=== PATIENT | female | born 1980 | race Caucasian/White ===

== ENCOUNTER 2018-12-08 13:23 | Outpatient (CLI) | payer MEDICAID ==
[2018-12-08] MEDS ORDERED: Bupivacaine 0.5% 30 ML SDV ONE (13:30)
[2018-12-08] MEDS ORDERED: Triamcinolone Acetonide 40 MG/ML 1 ML MDV ONE (13:30)
[2018-12-08 13:48] VITALS: BP 137/70; PULSE 80
--- NOTE | 2018-12-08 14:12 | ANES ---
DATE OF SERVICE: 12/08/2018 INDICATION: Ms. Langston is a 38-year-old female patient, referred to the [facility] to us by PRUDENCIO Rosenberg. She is here today for trigger points. Please see the orders for the patient's preprocedure diagnosis as well as ICD-10 code. Risks and benefits of procedure were explained to the patient. She wished to proceed with trigger point injections. TECHNIQUE: I did find 18 noticeable lumbosacral trigger points. I injected each of these 1 to 2 mL of 0.5% Sensorcaine with a Kenalog mixture. I did inject more than 3 muscle groups. She tolerated the procedure very nicely. Vital signs remained stable throughout the procedure, and nurse was with me for the entire procedure. There were no anesthesia complications noted, and she is going to return in 2 weeks for trigger point injections. She was discharged from the [facility] per protocol. Jose Maria Carson CRNA /[id number]
== END 2018-12-08 14:01 | disposition home or self-care (01) ==
LOC: JP.PAIN 13:23
PROVIDERS: ATTEND Physician Assistant
DX: M79.10 Myalgia, unspecified site (principal)
CPT/HCPCS: 20553; J3301; J3490

== ENCOUNTER 2019-03-25 11:21 | Emergency (ER) | payer MEDICAID ==
[2019-03-25 11:43] VITALS: BP 130/78; PULSE 93
--- NOTE | 2019-03-25 12:13 | EDM.PDOC ---
ED HPI GENERAL MEDICAL PROBLEM - General Chief Complaint: Respiratory Problem Stated Complaint: SWELLING FROM TOES TO ABD, PAIN, SOB Time Seen by Provider: 03/25/19 11:41 Source of Information: Reports: Patient History Limitations: Reports: No Limitations - History of Present Illness INITIAL COMMENTS - FREE TEXT/NARRATIVE: States she has had progressive swelling from her toes to her abdomen. Has been gradual; is painful. Red. She has seen her PCP; rx dyazide however she hasn't taken because she uses [place] and is concerned for interactions. Onset: Gradual Location: Reports: Abdomen, Lower Extremity, Left, Lower Extremity, Right Severity: Moderate Improves with: Reports: None Worsens with: Reports: None Associated Symptoms: Reports: Other (shortness of breath) Lower Leg Pain Score (Numeric/FACES): 4 - Related Data Allergies Allergy/AdvReac Type Severity Reaction Status Date / Time ketorolac tromethamine Allergy Hives Verified 12/08/18 13:36 [From Toradol] tramadol Allergy Hives Verified 12/08/18 13:36 Home Meds: Home Meds [place] Carbonate [Eskalith] 1,200 mg PO BEDTIME 07/25/14 [History] ALPRAZolam [Xanax] 1 mg PO BID PRN 02/07/15 [History] Cholecalciferol (Vitamin D3) [Vitamin D] 5,000 unit PO DAILY 07/19/15 [History] Amphetamine/Dextroamphetamine [Adderall XR] 30 mg PO DAILY 10/31/15 [History] carBAMazepine [Tegretol] 900 mg PO DAILY 02/25/17 [History] OLANZapine [Zyprexa] 15 mg PO BEDTIME 02/24/18 [History] tiZANidine [Zanaflex] 4 mg PO TID 10/20/18 [History] Dextroamphetamine/Amphetamine [Adderall] 30 mg PO DAILY 12/08/18 [History] Past Medical History HEENT History: Reports: Other (See Below) Other HEENT History: blind left eye Gastrointestinal History: Reports: Other (See Below) Other Gastrointestinal History: diverticulitis Neurological History: Reports: Migraines Psychiatric History: Reports: ADHD, Addiction, Anxiety, Bipolar, Depression, Mood Swings, Panic Attack, PTSD, Suicide Attempt - Infectious Disease History Infectious Disease History: Reports: Chicken Pox - Past Surgical History GI Surgical History: Reports: Cholecystectomy, Colonoscopy Social & Family History - Tobacco Use Smoking Status *Q: Current Every Day Smoker Years of Tobacco use: 20 Packs/Tins Daily: 0.5 - Caffeine Use Caffeine Use: Reports: Coffee, Energy Drinks, Soda, Tea - Recreational Drug Use Recreational Drug Use: No ED ROS GENERAL - Review of Systems Review Of Systems: See Below Constitutional: Reports: Weight Gain Respiratory: Reports: Shortness of Breath Cardiovascular: Reports: No Symptoms Endocrine: Reports: No Symptoms GI/Abdominal: Reports: No Symptoms : Reports: No Symptoms Musculoskeletal: Reports: Other (Bilateral LE edema) Skin: Reports: Other (Bilateral lower extremities redness/blotchiness) Neurological: Reports: No Symptoms Psychiatric: Reports: No Symptoms ED EXAM, GENERAL - Physical Exam Exam: See Below Exam Limited By: No Limitations General Appearance: Alert, WD/WN, No Apparent Distress Head: Atraumatic, Normocephalic Neck: Normal Inspection, Supple, Non-Tender, Full Range of Motion Respiratory/Chest: No Respiratory Distress, Lungs Clear, Normal Breath Sounds, No Accessory Muscle Use, Chest Non-Tender Cardiovascular: Normal Peripheral Pulses, Regular Rate, Rhythm Peripheral Pulses: 4+: Posterior Tibial (L), Posterior Tibial (R), Dorsalis Pedis (L), Dorsalis Pedis (R) GI/Abdominal: Normal Bowel Sounds, Soft, Non-Tender Back Exam: Normal Inspection, Decreased Range of Motion Extremities: Pedal Edema, Leg Pain, Increased Warmth, Redness, Other (2-3+ pitting edema that extends upward; to waste) Neurological: Alert, Oriented, CN II-XII Intact Psychiatric: Normal Affect, Other (tearful/anxious) Skin Exam: Warm, Dry, Intact Course - Vital Signs Last Recorded V/S: Last Vital Signs Temp 95.8 F 03/25/19 11:44 Pulse 93 03/25/19 11:44 Resp 18 03/25/19 11:44 BP 130/78 03/25/19 11:44 Pulse Ox 95 03/25/19 11:44 - Orders/Labs/Meds Labs: Laboratory Tests 03/25/19 03/25/19 Range/Units 12:28 12:28 WBC 9.3 (4.5-11.0) K/uL RBC 4.11 (3.30-5.50) M/uL Hgb 12.2 D (12.0-15.0) g/dL Hct 40.0 (36.0-48.0) % MCV 97 (80-98) fL MCH 30 (27-31) pg MCHC 31 L (32-36) % Plt Count 264 (150-400) K/uL Neut % (Auto) 65 (36-66) % Lymph % (Auto) 25 (24-44) % [place] % (Auto) 8 H (2-6) % Eos % (Auto) 2 (2-4) % Baso % (Auto) 0 (0-1) % Sodium 141 (140-148) mmol/L Potassium 4.0 (3.6-5.2) mmol/L Chloride 107 (100-108) mmol/L Carbon Dioxide 28 (21-32) mmol/L Anion Gap 5.6 (5.0-14.0) mmol/L BUN 17 D (7-18) mg/dL Creatinine 0.9 (0.6-1.0) mg/dL Est Cr Clr Drug Dosing 74.77 mL/min Estimated GFR (MDRD) > 60 (>60) Glucose 83 (74-106) mg/dL Calcium 9.0 (8.5-10.1) mg/dL Total Bilirubin 0.3 (0.2-1.0) mg/dL AST 45 H D (15-37) U/L ALT 58 D (12-78) U/L Alkaline Phosphatase 123 H (46-116) U/L NT-Pro-B Natriuret Pep 4855 H (5-125) pg/mL Total Protein 5.8 L (6.4-8.2) g/dL Albumin 2.9 L (3.4-5.0) g/dL Globulin 2.9 (2.3-3.5) g/dL Albumin/Globulin Ratio 1.0 L (1.2-2.2) - Re-Assessments/Exams Free Text/Narrative Re-Assessment/Exam: 03/25/19 13:35 Spoke with PCPRomán; This is the plan. Be sure to keep your appt with Marci France, here, at 3:00 03/29/19 Elevate your legs Lasix, 20 mg daily for one week Román, will be making appt to get the echocardiogram (ultrasound) of your heart; she will let you know when that is; You are off work this week Avoid food in a can. Fresh or frozen. Push water. You will be up going to the bathroom while taking the lasix. Be sure to take in the morning. Weight yourself daily. You will need to have your [place] level done more regularly should you stay on this medication. Call with questions. 03/25/19 13:36 Departure - Departure Time of Disposition: 13:29 Disposition: Home, Self-Care 01 Condition: Fair Clinical Impression: Shortness of breath, Lower extremity edema - Discharge Information *PRESCRIPTION DRUG MONITORING PROGRAM REVIEWED*: Not Applicable *COPY OF PRESCRIPTION DRUG MONITORING REPORT IN PATIENT BROO[place]: Not Applicable Instructions: Shortness of Breath, Adult, [id number], Edema Referrals: Toshia France PA [Primary Care Provider] - Forms: ED Department Discharge Additional Instructions: Be sure to keep your appt with Marci France, here, at 3:00 03/29/19 Elevate your legs Lasix, 20 mg daily for one week Román, will be making appt to get the echocardiogram (ultrasound) of your heart; she will let you know when that is; You are off work this week Avoid food in a can. Fresh or frozen. Push water. You will be up going to the bathroom while taking the lasix. Be sure to take in the morning. You will need to have your [place] level done more regularly should you stay on this medication. Call with questions. ED Communication - Discussed Case With (1) Discussed Case With (1): Outpatient Provider (Attempted contact/left message with Doyle Kaye [facility] Psychiatrist, regarding simultaneous use of diuretic and lithium) - Problem List & Annotations (1) Shortness of breath SNOMED Code(s): 541095325 Code(s): R06.02 - SHORTNESS OF BREATH Status: Acute Priority: Medium Current Visit: Yes - Problem List Review Problem List Initiated/Reviewed/Updated: Yes
--- NOTE | 2019-03-25 13:08 | CRLCR ---
HISTORY: Short of breath. COMPARISON: 01/06/2016. FINDINGS: The lungs are clear. Costophrenic angles sharp. Heart size and pulmonary vascularity within normal limits. The thorax is intact. IMPRESSION: No acute pulmonary process. Dictated by Kellen Martinez MD @ Mar 25 2019 1:05PM Signed by Dr. Kellen Martinez @ Mar 25 2019 1:05PM
== END 2019-03-25 13:53 | disposition home or self-care (01) ==
LOC: JP.ED 11:21
DX: R60.0 Localized edema (principal); R06.02 Shortness of breath; F31.9 Bipolar disorder, unspecified; F41.9 Anxiety disorder, unspecified; F17.210 Nicotine dependence, cigarettes, uncomplicated; Z88.5 Allergy status to narcotic agent; Z88.6 Allergy status to analgesic agent; Z79.899 Other long term (current) drug therapy
CPT/HCPCS: 36415; 71046; 80053; 83880; 85025; 99285-25

== ENCOUNTER 2019-05-14 16:18 | Emergency (ER) | payer MEDICAID ==
[2019-05-14 16:38] VITALS: BP 128/73; PULSE 86
[2019-05-14] MEDS ORDERED: Ketorolac 60 MG/2 ML SDV IM ONE (16:59)
[2019-05-14] MEDS ORDERED: diphenhydrAMINE 50 MG/ML SDV IM ONE (17:01)
--- NOTE | 2019-05-14 17:03 | EDM.PDOC ---
ED HPI GENERAL MEDICAL PROBLEM - General Chief Complaint: General Stated Complaint: SHAKING/PAIN Time Seen by Provider: 05/14/19 17:01 Source of Information: Reports: Patient, Family, RN Notes Reviewed History Limitations: Reports: No Limitations - History of Present Illness INITIAL COMMENTS - FREE TEXT/NARRATIVE: 38-year-old female presents emergency department today complaint of bilateral ankle knee elbow wrist pain it's been going on for the last 3 days has progressively gotten worse she has use ibuprofen help with pain however it is no longer helping. There is a possibility of tick borne exposure a couple of weeks ago. No fevers - Related Data Allergies Allergy/AdvReac Type Severity Reaction Status Date / Time ketorolac tromethamine Allergy Hives Verified 05/14/19 16:38 [From Toradol] tramadol Allergy Hives Verified 05/14/19 16:38 Home Meds: Home Meds [place] Carbonate [Eskalith] 1,200 mg PO BEDTIME 07/25/14 [History] ALPRAZolam [Xanax] 1 mg PO BID PRN 02/07/15 [History] Cholecalciferol (Vitamin D3) [Vitamin D] 5,000 unit PO DAILY 07/19/15 [History] Amphetamine/Dextroamphetamine [Adderall XR] 30 mg PO DAILY 10/31/15 [History] carBAMazepine [Tegretol] 900 mg PO DAILY 02/25/17 [History] OLANZapine [Zyprexa] 15 mg PO BEDTIME 02/24/18 [History] tiZANidine [Zanaflex] 4 mg PO TID 10/20/18 [History] Dextroamphetamine/Amphetamine [Adderall] 30 mg PO DAILY 12/08/18 [History] Furosemide 1 tab PO DAILY 05/14/19 [History] Nicotine [Habitrol] 1 patch TOP DAILY 05/14/19 [History] Past Medical History HEENT History: Reports: Other (See Below) Other HEENT History: blind left eye Cardiovascular History: Reports: Heart Failure, Heart Murmur Gastrointestinal History: Reports: Other (See Below) Other Gastrointestinal History: diverticulitis Neurological History: Reports: Migraines Psychiatric History: Reports: ADHD, Addiction, Anxiety, Bipolar, Depression, Mood Swings, Panic Attack, PTSD, Suicide Attempt - Infectious Disease History Infectious Disease History: Reports: Chicken Pox - Past Surgical History GI Surgical History: Reports: Cholecystectomy, Colonoscopy Social & Family History - Tobacco Use Smoking Status *Q: Current Every Day Smoker Years of Tobacco use: 20 Packs/Tins Daily: 0.5 - Caffeine Use Caffeine Use: Reports: Coffee, Energy Drinks, Soda, Tea ED ROS GENERAL - Review of Systems Review Of Systems: See Below Constitutional: Denies: Fever, Chills HEENT: Reports: No Symptoms Respiratory: Reports: No Symptoms Cardiovascular: Reports: No Symptoms GI/Abdominal: Reports: No Symptoms : Reports: No Symptoms Musculoskeletal: Reports: Shoulder Pain, Joint Pain. Denies: Muscle Pain, Muscle Stiffness Skin: Reports: No Symptoms ED EXAM, GENERAL - Physical Exam Exam: See Below Exam Limited By: No Limitations General Appearance: Alert, WD/WN, No Apparent Distress Respiratory/Chest: No Respiratory Distress, Lungs Clear, Normal Breath Sounds, No Accessory Muscle Use, Chest Non-Tender Cardiovascular: Regular Rate, Rhythm, No Murmur GI/Abdominal: Soft, Non-Tender Back Exam: Normal Inspection, Full Range of Motion, NT Extremities: Normal Inspection, Normal Range of Motion, Non-Tender, No Pedal Edema, Normal Capillary Refill, Other (Poni appreciate any erythema or edema around any of the joints she describes it is painful) Course - Vital Signs Last Recorded V/S: Last Vital Signs Temp 97.1 F 05/14/19 16:50 Pulse 86 05/14/19 16:50 Resp 16 05/14/19 16:50 BP 128/73 05/14/19 16:50 Pulse Ox 96 05/14/19 16:50 - Orders/Labs/Meds Labs: Laboratory Tests 05/14/19 05/14/19 Range/Units 17:11 17:11 WBC 16.1 H (4.5-11.0) K/uL RBC 4.63 (3.30-5.50) M/uL Hgb 13.9 (12.0-15.0) g/dL Hct 43.8 (36.0-48.0) % MCV 95 (80-98) fL MCH 30 (27-31) pg MCHC 32 (32-36) % Plt Count 272 (150-400) K/uL Neut % (Auto) 81 H (36-66) % Lymph % (Auto) 11 L (24-44) % [place] % (Auto) 6 (2-6) % Eos % (Auto) 2 (2-4) % Baso % (Auto) 0 (0-1) % Sodium 134 L (140-148) mmol/L Potassium 3.3 L (3.6-5.2) mmol/L Chloride 102 (100-108) mmol/L Carbon Dioxide 25 (21-32) mmol/L Anion Gap 10.3 (5.0-14.0) mmol/L BUN 6 L D (7-18) mg/dL Creatinine 0.8 (0.6-1.0) mg/dL Est Cr Clr Drug Dosing 84.11 mL/min Estimated GFR (MDRD) > 60 (>60) Glucose 102 (74-106) mg/dL Calcium 9.7 (8.5-10.1) mg/dL Total Bilirubin 0.6 D (0.2-1.0) mg/dL AST 29 (15-37) U/L ALT 54 (12-78) U/L Alkaline Phosphatase 147 H (46-116) U/L Lactate Dehydrogenase 214 (82-234) U/L C-Reactive Protein 0.51 H (0.0-0.3) mg/dL Total Protein 7.1 (6.4-8.2) g/dL Albumin 3.6 (3.4-5.0) g/dL Globulin 3.5 (2.3-3.5) g/dL Albumin/Globulin Ratio 1.0 L (1.2-2.2) Meds: Medications Discontinued Medications Generic Name Dose Route Start Last Admin Trade Name Freq PRN Reason Stop Dose Admin Diphenhydramine HCl 50 mg 05/14/19 17:01 05/14/19 17:15 Benadryl IM 05/14/19 17:02 50 mg ONETIME ONE Administration Ketorolac Tromethamine 60 mg 05/14/19 16:59 05/14/19 17:15 Toradol IM 05/14/19 17:00 60 mg ONETIME ONE Administration Departure - Departure Time of Disposition: 17:46 Disposition: Home, Self-Care 01 Condition: Fair Clinical Impression: Joint pain Qualifiers: Joint pain location: unspecified Qualified Code(s): M25.50 - Pain in unspecified joint - Discharge Information Referrals: Toshia France PA [Primary Care Provider] - Forms: ED Department Discharge Additional Instructions: use Ketoralac for pain keep appointment on Thursday - Assessment/Plan Plan: assesment multiple joint aches plan good relief with Ketoralac rx written for Ketoralac 10 mg po tid prn, #20, f/u with ortho on Thursday
== END 2019-05-14 18:03 | disposition home or self-care (01) ==
LOC: JP.ED 16:18
DX: M25.571 Pain in right ankle and joints of right foot (principal); M25.572 Pain in left ankle and joints of left foot; M25.561 Pain in right knee; M25.562 Pain in left knee; M25.531 Pain in right wrist; M25.532 Pain in left wrist; M25.521 Pain in right elbow; M25.522 Pain in left elbow; I50.9 Heart failure, unspecified; F17.210 Nicotine dependence, cigarettes, uncomplicated; Z88.6 Allergy status to analgesic agent; Z90.49 Acquired absence of other specified parts of digestive tract; Z88.5 Allergy status to narcotic agent; Z79.899 Other long term (current) drug therapy
CPT/HCPCS: 36415; 80053; 83615; 85025; 86140; 96372; 99283; J1200; J1885

== ENCOUNTER 2019-06-09 07:54 | Emergency (ER) | payer MEDICAID ==
[2019-06-09] MEDS ORDERED: Aspirin 81 MG Tab.Chew PO ONE (08:18)
[2019-06-09] MEDS ORDERED: Morphine 4 MG/ML Syringe IVPUSH PRN (08:18)
[2019-06-09] MEDS ORDERED: LORazepam 1 MG Tab PO ONE (08:21)
--- NOTE | 2019-06-09 08:23 | EDM.PDOC ---
ED HPI GENERAL MEDICAL PROBLEM - General Chief Complaint: Chest Pain Stated Complaint: CHEST PAIN, SOB Time Seen by Provider: 06/09/19 08:13 Source of Information: Reports: Patient, Family, RN Notes Reviewed History Limitations: Reports: No Limitations - History of Present Illness INITIAL COMMENTS - FREE TEXT/NARRATIVE: 38-year-old female presents emergency department today complaint of chest pain, she states it came on suddenly at 7:30 this morning sharp stabbing in nature she felt short of breath no diaphoresis no nausea does have past medical history of congestive heart failure unknown etiology. She rates pain 8 out of 10 Chest Pain Score (Numeric/FACES): 9 - Related Data Allergies Allergy/AdvReac Type Severity Reaction Status Date / Time No Known Allergies Allergy Verified 06/09/19 08:05 Home Meds: Home Meds ALPRAZolam [Xanax] 1 mg PO BID PRN 02/07/15 [History] Cholecalciferol (Vitamin D3) [Vitamin D] 5,000 unit PO DAILY 07/19/15 [History] carBAMazepine [Tegretol] 800 mg PO DAILY 02/25/17 [History] OLANZapine [Zyprexa] 15 mg PO BEDTIME 02/24/18 [History] tiZANidine [Zanaflex] 4 mg PO TID PRN 10/20/18 [History] Dextroamphetamine/Amphetamine [Adderall] 30 mg PO DAILY 12/08/18 [History] Furosemide 1 tab PO DAILY 05/14/19 [History] Nicotine [Habitrol] 1 patch TOP DAILY 05/14/19 [History] Past Medical History HEENT History: Reports: Other (See Below) Other HEENT History: blind left eye Cardiovascular History: Reports: Heart Failure, Heart Murmur, Pulmonary Hypertension, Other (See Below) Other Cardiovascular History: leaky valve Gastrointestinal History: Reports: Other (See Below) Other Gastrointestinal History: diverticulitis 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: Musculoskeletal History: Reports: Back Pain, Chronic, Other (See Below) Other Musculoskeletal History: chronic neck pain Neurological History: Reports: Migraines Psychiatric History: Reports: ADHD, Addiction, Anxiety, Bipolar, Depression, Mood Swings, Panic Attack, PTSD, Suicide Attempt Endocrine/Metabolic History: Reports: Obesity/BMI 30+ - Infectious Disease History Infectious Disease History: Reports: Chicken Pox - Past Surgical History Head Surgeries/Procedures: Reports: None HEENT Surgical History: Reports: None Cardiovascular Surgical History: Reports: None GI Surgical History: Reports: Cholecystectomy, Colonoscopy Endocrine Surgical History: Reports: None Neurological Surgical History: Reports: Discectomy, Other (See Below) Musculoskeletal Surgical History: Reports: None Dermatological Surgical History: Reports: None Social & Family History - Tobacco Use Smoking Status *Q: Current Every Day Smoker Years of Tobacco use: 25 Packs/Tins Daily: 0.5 Used Tobacco, but Quit: No Second Hand Smoke Exposure: No - Caffeine Use Caffeine Use: Reports: Coffee, Energy Drinks, Soda, Tea Other Caffeine Use: pop x 6 cans per day - Recreational Drug Use Recreational Drug Use: No ED ROS GENERAL - Review of Systems Review Of Systems: See Below Constitutional: Reports: No Symptoms. Denies: Diaphoresis HEENT: Reports: No Symptoms Respiratory: Reports: Shortness of Breath Cardiovascular: Reports: Chest Pain GI/Abdominal: Reports: No Symptoms : Reports: No Symptoms ED EXAM, GENERAL - Physical Exam Exam: See Below Exam Limited By: No Limitations General Appearance: Alert, Moderate Distress Respiratory/Chest: No Respiratory Distress, Lungs Clear, Normal Breath Sounds, No Accessory Muscle Use, Other (tenderness to palpation center of the chest) Cardiovascular: Regular Rate, Rhythm, No Murmur Course - Vital Signs Last Recorded V/S: Last Vital Signs Temp 98.1 F 06/09/19 08:03 Pulse 78 06/09/19 10:44 Resp 25 H 06/09/19 10:44 BP 144/46 H 06/09/19 10:44 Pulse Ox 99 06/09/19 10:44 - Orders/Labs/Meds Orders: Active Orders 24 hr Category Date Time Status Cardiac Monitoring [RC] .As Directed Care 06/09/19 08:18 Active EKG Documentation Completion [RC] ASDIRECTED Care 06/09/19 08:19 Active Peripheral IV Care [RC] . DIRECTED Care 06/09/19 10:33 Active Morphine Med 06/09/19 08:18 Active 4 mg IVPUSH Q10M PRN Sodium Chloride 0.9% [Saline Flush] Med 06/09/19 10:33 Active 10 ml FLUSH ASDIRECTED PRN Peripheral IV Insertion Adult [OM.PC] Urgent Oth 06/09/19 10:33 Ordered EKG 12 Lead [EK] Stat Ther 06/09/19 08:19 Ordered Medication Orders Morphine Sulfate (Morphine) 4 mg IVPUSH Q10M PRN PRN Reason: Chest Pain Stop: 06/10/19 08:19 Sodium Chloride (Saline Flush) 10 ml FLUSH ASDIRECTED PRN PRN Reason: Keep Vein Open Labs: Laboratory Tests 06/09/19 06/09/19 06/09/19 Range/Units 08:24 08:24 11:00 WBC 7.1 (4.5-11.0) K/uL RBC 4.48 (3.30-5.50) M/uL Hgb 13.4 (12.0-15.0) g/dL Hct 42.0 (36.0-48.0) % MCV 94 (80-98) fL MCH 30 (27-31) pg MCHC 32 (32-36) % Plt Count 236 (150-400) K/uL Neut % (Auto) 59 (36-66) % Lymph % (Auto) 31 (24-44) % [place] % (Auto) 8 H (2-6) % Eos % (Auto) 1 L (2-4) % Baso % (Auto) 0 (0-1) % Sodium 141 (140-148) mmol/L Potassium 4.2 (3.6-5.2) mmol/L Chloride 105 (100-108) mmol/L Carbon Dioxide 24 (21-32) mmol/L Anion Gap 12.2 (5.0-14.0) mmol/L BUN 12 D (7-18) mg/dL Creatinine 0.8 (0.6-1.0) mg/dL Est Cr Clr Drug Dosing 84.11 mL/min Estimated GFR (MDRD) > 60 (>60) Glucose 87 (74-106) mg/dL Calcium 9.2 (8.5-10.1) mg/dL Total Bilirubin 0.2 D (0.2-1.0) mg/dL AST 30 (15-37) U/L ALT 32 (12-78) U/L Alkaline Phosphatase 96 (46-116) U/L Troponin I < 0.017 < 0.017 (0.000-0.056) ng/mL NT-Pro-B Natriuret Pep 2309 H (5-125) pg/mL Total Protein 6.5 (6.4-8.2) g/dL Albumin 3.2 L (3.4-5.0) g/dL Globulin 3.3 (2.3-3.5) g/dL Albumin/Globulin Ratio 1.0 L (1.2-2.2) Meds: Medications Generic Name Dose Route Start Last Admin Trade Name Freq PRN Reason Stop Dose Admin Morphine Sulfate 4 mg 06/09/19 08:18 Morphine IVPUSH 06/10/19 08:19 Q10M PRN Chest Pain Sodium Chloride 10 ml 06/09/19 10:33 Saline Flush FLUSH ASDIRECTED PRN Keep Vein Open Discontinued Medications Generic Name Dose Route Start Last Admin Trade Name Freq PRN Reason Stop Dose Admin Aspirin 324 mg 06/09/19 08:18 06/09/19 08:29 Aspirin PO 06/09/19 08:19 324 mg ONETIME ONE Administration Furosemide 40 mg 06/09/19 10:33 06/09/19 10:47 Lasix IVPUSH 06/09/19 10:34 40 mg ONETIME ONE Administration Ketorolac Tromethamine 60 mg 06/09/19 09:40 06/09/19 09:45 Toradol IM 06/09/19 09:41 60 mg ONETIME ONE Administration Lorazepam 1 mg 06/09/19 08:21 06/09/19 08:29 Ativan PO 06/09/19 08:22 1 mg ONETIME ONE Administration Departure - Departure Time of Disposition: 11:46 Disposition: Home, Self-Care 01 Condition: Fair Clinical Impression: CHF exacerbation Qualifiers: Heart failure type: unspecified Qualified Code(s): I50.9 - Heart failure, unspecified Referrals: PCP,None [Primary Care Provider] - Forms: ED Department Discharge Additional Instructions: Continue with your Lasix as prescribed contact cardiology for further plan, call or return to the emergency department worsening of symptoms - My Orders Last 24 Hours: My Active Orders 06/09/19 08:18 Cardiac Monitoring [RC] .As Directed Morphine 4 mg IVPUSH Q10M PRN 06/09/19 08:19 EKG Documentation Completion [RC] ASDIRECTED EKG 12 Lead [EK] Stat 06/09/19 10:33 Peripheral IV Care [RC] . DIRECTED Sodium Chloride 0.9% [Saline Flush] 10 ml FLUSH ASDIRECTED PRN Peripheral IV Insertion Adult [OM.PC] Urgent - Assessment/Plan Last 24 Hours: My Active Orders 06/09/19 08:18 Cardiac Monitoring [RC] .As Directed Morphine 4 mg IVPUSH Q10M PRN 06/09/19 08:19 EKG Documentation Completion [RC] ASDIRECTED EKG 12 Lead [EK] Stat 06/09/19 10:33 Peripheral IV Care [RC] . DIRECTED Sodium Chloride 0.9% [Saline Flush] 10 ml FLUSH ASDIRECTED PRN Peripheral IV Insertion Adult [OM.PC] Urgent Plan: Assessment Acuity = acute Site and laterality = exacerbation congestive heart failure Etiology = unknown etiology Manifestations = dyspnea on exertion Location of injury = Home Lab values = CBC, CMP, troponin negative troponin was negative 2 however BNP elevated 10/10/08 similar to baseline in the past consistent with fluid overload type pattern, chest x-ray shows no acute process EKG difficult to interpret secondary to motion Plan She had good relief with 40 mg Lasix IV she is going to continue with her 20 mg Lasix IV as an outpatient she will contact cardiology for further review This note was dictated using [employer] voice recognition software please call with any questions on syntax or grammar.
[2019-06-09] MEDS ORDERED: Ketorolac 60 MG/2 ML SDV IM ONE (09:40)
--- NOTE | 2019-06-09 09:51 | CRLCR ---
CHEST 2 VIEWS INDICATION: Chest pain IMPRESSION: Normal heart size and vascular pattern. ECG Monitor leads projected over the patient. Lungs are clear. No pneumothorax or pleural effusion. Dictated by Sanjiv Cameron MD @ Jun 09 2019 9:50AM Signed by Dr. Sanjiv Cameron @ Jun 09 2019 9:50AM
[2019-06-09] MEDS ORDERED: Sodium Chloride 0.9% 10 ML Syringe FLUSH PRN (10:33)
[2019-06-09] MEDS ORDERED: Furosemide 40 MG/4 ML VIAL IVPUSH ONE (10:33)
[2019-06-09 10:48] VITALS: BP 144/46; PULSE 78
== END 2019-06-09 11:54 | disposition home or self-care (01) ==
LOC: JP.ED 07:54
DX: I50.9 Heart failure, unspecified (principal); F31.9 Bipolar disorder, unspecified; F41.9 Anxiety disorder, unspecified; E66.9 Obesity, unspecified; Z68.38 Body mass index [BMI] 38.0-38.9, adult; F17.210 Nicotine dependence, cigarettes, uncomplicated; Z79.899 Other long term (current) drug therapy
CPT/HCPCS: 36415; 71046; 80053; 83880; 84484; 85025; 93005; 96372; 96374; 99285-25; A9270-GY; J1885; J1940

== ENCOUNTER 2019-10-21 17:57 | Emergency (ER) | payer MEDICAID ==
[2019-10-21 18:51] VITALS: BP 129/78; PULSE 68
[2019-10-21] MEDS ORDERED: Tamsulosin 0.4 MG Cap.ER PO ONE (19:13)
[2019-10-21] MEDS ORDERED: Ketorolac 60 MG/2 ML SDV IM ONE (19:13)
--- NOTE | 2019-10-21 19:35 | EDM.PDOC ---
ED HPI GENERAL MEDICAL PROBLEM - General Chief Complaint: Genitourinary Problem Stated Complaint: ABD AND BACK PAIN Time Seen by Provider: 10/21/19 19:00 Source of Information: Reports: Patient, Family History Limitations: Reports: No Limitations - History of Present Illness INITIAL COMMENTS - FREE TEXT/NARRATIVE: 39-year-old female with left-sided abdominal and flank pain for the past 12 hours. She was seen yesterday for hematuria which was asymptomatic, a CT scan confirmed nonobstructing renal stones. Onset: Today Duration: Hour(s): (6 to 8 hours), Waxing/Waning Location: Reports: Abdomen, Other (Left flank area) Severity: Moderate - Related Data Allergies Allergy/AdvReac Type Severity Reaction Status Date / Time No Known Allergies Allergy Verified 10/21/19 19:03 Home Meds: Home Meds ALPRAZolam [Xanax] 1 mg PO BID PRN 02/07/15 [History] Cholecalciferol (Vitamin D3) [Vitamin D] 5,000 unit PO DAILY 07/19/15 [History] carBAMazepine [Tegretol] 800 mg PO DAILY 02/25/17 [History] OLANZapine [Zyprexa] 20 mg PO BEDTIME 02/24/18 [History] tiZANidine [Zanaflex] 4 mg PO TID PRN 10/20/18 [History] Dextroamphetamine/Amphetamine [Adderall] 60 mg PO DAILY 12/08/18 [History] Furosemide 40 mg PO DAILY 05/14/19 [History] Nicotine [Habitrol] 1 patch TOP DAILY 05/14/19 [History] Fluticasone/Vilanterol [Breo Ellipta 100-25 MCG Inhalation Kit] 1 each IH DAILY 10/05/19 [History] Potassium Chloride 20 meq PO BID 10/05/19 [History] Past Medical History HEENT History: Reports: Other (See Below) Other HEENT History: blind left eye Cardiovascular History: Reports: Heart Failure, Heart Murmur, Pulmonary Hypertension, Other (See Below) Other Cardiovascular History: leaky valve Gastrointestinal History: Reports: Other (See Below) Other Gastrointestinal History: diverticulitis 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: Musculoskeletal History: Reports: Back Pain, Chronic, Other (See Below) Other Musculoskeletal History: chronic neck pain Neurological History: Reports: Migraines Psychiatric History: Reports: ADHD, Addiction, Anxiety, Bipolar, Depression, Mood Swings, Panic Attack, PTSD, Suicide Attempt Endocrine/Metabolic History: Reports: Obesity/BMI 30+ - Infectious Disease History Infectious Disease History: Reports: Chicken Pox - Past Surgical History Head Surgeries/Procedures: Reports: None HEENT Surgical History: Reports: None Cardiovascular Surgical History: Reports: None GI Surgical History: Reports: Cholecystectomy, Colonoscopy Endocrine Surgical History: Reports: None Neurological Surgical History: Reports: Discectomy, Other (See Below) Musculoskeletal Surgical History: Reports: None Dermatological Surgical History: Reports: None Social & Family History - Tobacco Use Smoking Status *Q: Current Every Day Smoker Years of Tobacco use: 25 Packs/Tins Daily: 1 - Caffeine Use Caffeine Use: Reports: Coffee, Energy Drinks, Soda, Tea Other Caffeine Use: pop x 6 cans per day ED ROS GENERAL - Review of Systems Review Of Systems: See Below Constitutional: Denies: Fever, Chills, Malaise HEENT: Reports: No Symptoms Respiratory: Denies: Shortness of Breath Cardiovascular: Denies: Chest Pain GI/Abdominal: Reports: Abdominal Pain. Denies: Nausea, Vomiting : Reports: Flank Pain. Denies: Dysuria Skin: Reports: No Symptoms Neurological: Reports: No Symptoms ED EXAM, GENERAL - Physical Exam Exam: See Below Exam Limited By: No Limitations General Appearance: Alert, No Apparent Distress (Looks uncomfortable but not distressed) Respiratory/Chest: No Respiratory Distress, Lungs Clear Cardiovascular: Regular Rate, Rhythm GI/Abdominal: Soft, Non-Tender Neurological: Alert, Oriented Course - Vital Signs Last Recorded V/S: Last Vital Signs Temp 97.2 F 10/21/19 19:08 Pulse 68 10/21/19 19:08 Resp 17 10/21/19 19:08 BP 129/78 10/21/19 19:08 Pulse Ox 95 10/21/19 19:08 - Orders/Labs/Meds Meds: Medications Discontinued Medications Generic Name Dose Route Start Last Admin Trade Name Elena PRN Reason Stop Dose Admin Ketorolac Tromethamine 60 mg 10/21/19 19:13 10/21/19 19:19 Toradol IM 10/21/19 19:14 60 mg ONETIME ONE Administration Tamsulosin HCl 0.4 mg 10/21/19 19:13 10/21/19 19:18 Flomax PO 02/14/20 19:14 0.4 mg ONETIME ONE Administration - Re-Assessments/Exams Free Text/Narrative Re-Assessment/Exam: 10/21/19 23:41 CT from yesterday was reviewed, she did have a 3 mm stone in the lower pole of the left kidney. No obstructive stones or hydronephrosis. It is likely the stone has dropped and is causing some renal colic on the left side. She was given 60 mg of IM Toradol, 10 additional doses to take every 4-6 hours and 1 dose of oral Flomax. Recheck in 24 to 48 hours if not improving. Departure - Departure Time of Disposition: 19:47 Disposition: Home, Self-Care 01 Clinical Impression: Renal colic on left side - Discharge Information Instructions: Kidney Stones, [id number] Referrals: Toshia France PA [Primary Care Provider] - Forms: ED Department Discharge Care Plan Goals: Stay hydrated, use Toradol every 6 hours for pain and consider rechecking in 2 to 3 days if not improving satisfactorily. Return sooner if worsening despite treatment such as fever or uncontrolled pain. Sepsis Event Note - Evaluation Sepsis Screening Result: No Definite Risk - Focused Exam Vital Signs: Vital Signs Temp Pulse Resp BP Pulse Ox 10/21/19 19:08 97.2 F 68 17 129/78 95 10/21/19 18:50 97.2 F 68 17 129/78 95 Date Exam was Performed: 10/21/19 Time Exam was Performed: 23:40
== END 2019-10-21 19:48 | disposition home or self-care (01) ==
LOC: JP.ED 17:57
DX: N20.0 Calculus of kidney (principal); F31.9 Bipolar disorder, unspecified; F41.9 Anxiety disorder, unspecified; F17.210 Nicotine dependence, cigarettes, uncomplicated; Z79.899 Other long term (current) drug therapy
CPT/HCPCS: 96372; 99284; A9270; J1885

== ENCOUNTER 2020-11-19 08:11 | Emergency (ER) | payer MEDICAID ==
[2020-11-19] MEDS ORDERED: Ketorolac 60 MG/2 ML SDV IM ONE (08:46)
[2020-11-19] MEDS ORDERED: Ketorolac 30 MG/ML SDV IVPUSH ONE (08:56)
[2020-11-19] MEDS ORDERED: LORazepam 2 MG/ML SDV IVPUSH ONE (08:56)
--- NOTE | 2020-11-19 08:59 | EDM.PDOC ---
ED HPI GENERAL MEDICAL PROBLEM - General Chief Complaint: General Stated Complaint: CHEST PAIN, TROUBLE BREATHING Time Seen by Provider: 11/19/20 08:30 Source of Information: Reports: Patient History Limitations: Reports: No Limitations - History of Present Illness INITIAL COMMENTS - FREE TEXT/NARRATIVE: 40-year-old female with a history of pulmonary hypertension, presents with 48 hours of pleuritic pain on the right side of her chest, shortness of breath, anxiety and chest pain. It is very painful to breathe or move. She has not taken any pain medication. No cough or fever, mild nausea but no vomiting. She has had some stomach upset and mild diarrhea over the past 2 days. She is a smoker. Denies any palpitations. Onset: Gradual Duration: Day(s): (2 days of symptoms) Location: Reports: Chest (Mostly sharp chest pain on the right side) Worsens with: Reports: Breathing, Movement Associated Symptoms: Reports: Chest Pain, Malaise, Shortness of Breath. Denies: Cough, Fever/Chills, Headaches Right Chest Pain Score (Numeric/FACES): 8 - Related Data Allergies Allergy/AdvReac Type Severity Reaction Status Date / Time No Known Allergies Allergy Verified 11/19/20 08:24 Home Meds: Home Meds ALPRAZolam [Xanax] 1 mg PO BID PRN 02/07/15 [History] Cholecalciferol (Vitamin D3) [Vitamin D] 5,000 unit PO DAILY 07/19/15 [History] carBAMazepine [Tegretol] 800 mg PO DAILY 02/25/17 [History] OLANZapine [Zyprexa] 20 mg PO BEDTIME 02/24/18 [History] Dextroamphetamine/Amphetamine [Adderall] 30 mg PO BID 12/08/18 [History] Furosemide 40 mg PO DAILY 05/14/19 [History] Nicotine [Habitrol] 1 patch TOP DAILY 05/14/19 [History] Potassium Chloride 20 meq PO BID 10/05/19 [History] Past Medical History HEENT History: Reports: Other (See Below) Other HEENT History: blind left eye Cardiovascular History: Reports: Heart Failure, Heart Murmur, Pulmonary H ypertension, Other (See Below) Other Cardiovascular History: leaky valve Respiratory History: Reports: None Gastrointestinal History: Reports: Other (See Below) Other Gastrointestinal History: diverticulitis [employer]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: Musculoskeletal History: Reports: Back Pain, Chronic, Other (See Below) Other Musculoskeletal History: chronic neck pain Neurological History: Reports: Migraines Psychiatric History: Reports: ADHD, Addiction, Anxiety, Bipolar, Depression, Mood Swings, Panic Attack, PTSD, Suicide Attempt Endocrine/Metabolic History: Reports: Obesity/BMI 30+ - Infectious Disease History Infectious Disease History: Reports: Chicken Pox - Past Surgical History Head Surgeries/Procedures: Reports: None HEENT Surgical History: Reports: None Cardiovascular Surgical History: Reports: None GI Surgical History: Reports: Cholecystectomy, Colonoscopy Endocrine Surgical History: Reports: None Neurological Surgical History: Reports: Discectomy, Other (See Below) Musculoskeletal Surgical History: Reports: None Dermatological Surgical History: Reports: None Social & Family History - Tobacco Use Years of Tobacco use: 26 - Caffeine Use Caffeine Use: Reports: Coffee, Energy Drinks, Soda, Tea Other Caffeine Use: pop x 6 cans per day - Recreational Drug Use Recreational Drug Use: No ED ROS GENERAL - Review of Systems Review Of Systems: See Below Constitutional: Reports: Malaise. Denies: Fever, Chills HEENT: Denies: Throat Pain, Vision Change Respiratory: Reports: Shortness of Breath, Pleuritic Chest Pain. Denies: Cough Cardiovascular: Reports: Chest Pain GI/Abdominal: Reports: Diarrhea, Nausea. Denies: Vomiting : Reports: No Symptoms Skin: Reports: No Symptoms Psychiatric: Reports: Anxiety ED EXAM, GENERAL - Physical Exam Exam: See Below Free Text/Narrative:: Respiratory rate is 22, O2 saturations 100%. Patient is obviously hyperventilating. Exam Limited By: No Limitations General Appearance: Alert, Anxious, Moderate Distress, Other (Patient is obviously hyperventilating, extremely anxious) Eye Exam: Bilateral Eye: Normal Inspection Head: Atraumatic Respiratory/Chest: Lungs Clear. No: Decreased Breath Sounds, Pleural Rub Cardiovascular: Regular Rate, Rhythm GI/Abdominal: Non-Tender Extremities: Normal Inspection. No: Pedal Edema Neurological: Alert, Oriented Psychiatric: Anxious Skin Exam: Warm, Dry Course - Vital Signs Last Recorded V/S: Last Vital Signs Temp 96.7 F L 11/19/20 08:28 Pulse 81 11/19/20 09:47 Resp 18 11/19/20 09:47 BP 141/81 H 11/19/20 09:47 Pulse Ox 100 11/19/20 09:47 - Orders/Labs/Meds Meds: Medications Discontinued Medications Generic Name Dose Route Start Last Admin Trade Name Elena PRN Reason Stop Dose Admin Ketorolac Tromethamine 30 mg 11/19/20 08:56 11/19/20 09:03 Ketorolac 30 Mg/Ml Sdv IVPUSH 11/19/20 08:57 30 mg ONETIME ONE Administration Lorazepam 1 mg 11/19/20 08:56 11/19/20 09:05 Lorazepam 2 Mg/Ml Sdv IVPUSH 11/19/20 08:57 1 mg ONETIME ONE Administration - Re-Assessments/Exams Free Text/Narrative Re-Assessment/Exam: 11/19/20 09:47 [id number] ultrasound was obtained, lungs abnormal a lines and there is no Doppler evidence of congestive heart failure. Cardiac exam shows hypertrophied right ventricle but otherwise no pericardial effusion or significant abnormality. Patient was reassured that this does not appear to be heart failure and more likely pleurisy, an IV was started and she was given 1 mg of IV Ativan and 30 mg of IV Toradol. 40 minutes after the medication I went in to check the patient she was resting quietly and feeling much much better. Respiratory rate is now normal, O2 saturations still 99%. Pain is much improved. We will let her rest for a while. 11/19/20 10:30 A little over an hour after the medications, patient's pain was literally gone, she no longer had hyperventilation. O2 sats were still 95 to 99% and she did not feel short of breath. She will be discharged with 10 doses of Toradol to take every 6 hours for pleurisy, encouraged to cut back on cigarettes and can return at any time if worsening such as fever, cough, or return of shortness of breath. Departure - Departure Time of Disposition: 10:46 Disposition: Home, Self-Care 01 Clinical Impression: Pleurisy - Discharge Information Instructions: Pleurisy, [id number] Referrals: Toshia France PA [Primary Care Provider] - Forms: ED Department Discharge Care Plan Goals: Rest today, take 1 Toradol every 6 hours until pain is gone. Consider rechecking in 2 to 3 days if not improving satisfactorily, or return sooner if worsening such as fever, increased pain or shortness of breath. Sepsis Event Note (ED) - Evaluation Sepsis Screening Result: No Definite Risk - Focused Exam Vital Signs: Vital Signs Temp Pulse Resp BP Pulse Ox 11/19/20 09:47 81 18 141/81 H 100 11/19/20 08:28 96.7 F L 83 22 H 154/93 H 100 11/19/20 08:23 96.7 F L 83 22 H 154/93 H 100
[2020-11-19 09:48] VITALS: BP 141/81; PULSE 81
== END 2020-11-19 10:47 | disposition home or self-care (01) ==
LOC: JP.ED 08:11
DX: R09.1 Pleurisy (principal); R06.02 Shortness of breath; I50.9 Heart failure, unspecified; I27.20 Pulmonary hypertension, unspecified; E66.9 Obesity, unspecified; Z68.39 Body mass index [BMI] 39.0-39.9, adult; Z72.0 Tobacco use; Z79.899 Other long term (current) drug therapy
CPT/HCPCS: 96374; 96375; 99285; J1885; J2060

== ENCOUNTER 2024-04-04 13:57 | Observation (INO) | payer MEDICARE, MEDICAID ==
[2024-04-04] MEDS ORDERED: Sodium Chloride 0.9% 10 ML Syringe FLUSH PRN (14:06)
[2024-04-04 14:22] LABS: BASOPHILS ABSOLUTE AUTO 0.03 K/uL (0.00-0.10); BASOPHILS PERCENT AUTO 0.4 % (0.1-1.3); EOSINOPHILS ABSOLUTE AUTO 0.17 K/uL (0.00-0.40); EOSINOPHILS PERCENT AUTO 2.2 % (0.0-5.4); HEMATOCRIT 36.5 % (34.3-46.0); HEMOGLOBIN 11.9 g/dL (11.2-15.5); IMMATURE GRAN ABSOLUTE AUTO 0.05 K/uL (0.00-0.23); IMMATURE GRAN PERCENT AUTO 0.6 % (0.0-0.7); LYMPHOCYTES ABSOLUTE AUTO 2.07 K/uL (0.8-3.3); LYMPHOCYTES PERCENT AUTO 26.6 % (11.4-47.7); MEAN CORPUSCULAR HEMOGLOBIN 27.2 pg (31.6-35.5); MEAN CORPUSCULAR HGB CONC 32.6 g/dL (31.6-35.5); MEAN CORPUSCULAR VOLUME 83.3 fL (81.4-99.0); MONOCYTES ABSOLUTE AUTO 0.51 K/uL (0.20-0.90); MONOCYTES PERCENT AUTO 6.5 % (3.3-12.6); NEUTROPHILS ABSOLUTE AUTO 4.96 K/uL (1.0-7.6); NEUTROPHILS PERCENT AUTO 63.7 % (40.0-78.1); PLATELET COUNT,PLT 169 K/uL (130-375); RED BLOOD CELL COUNT 4.38 M/uL (3.77-5.24); WHITE BLOOD CELL COUNT,WBC 7.8 K/uL (3.2-11.0)
[2024-04-04 14:25] LABS: LACTIC ACID 1.8 mmol/L (0.7-2.1)
[2024-04-04 14:47] LABS: INR 1.1; PTT,PARTIAL THROMBOPLSTIN TIME 23.3 sec (21.8-27.3)
[2024-04-04 16:59] LABS: AMPHETAMINES SCREEN, URINE PRESUMPTIVE POSITIVE (NEGATIVE); BARBITURATE SCREEN,URINE NEGATIVE (NEGATIVE); BENZODIAZEPINES SCREEN,URINE NEGATIVE (NEGATIVE); METHADONE SCREEN, URINE NEGATIVE (NEGATIVE); METHAMPHETAMINES SCREEN, URINE PRESUMPTIVE POSITIVE (NEGATIVE); OXYCODONE SCREEN,URINE NEGATIVE (NEGATIVE); PROPOXYPHENE SCREEN,URINE NEGATIVE (NEGATIVE); THC SCREEN,URINE 50 NG/ML PRESUMPTIVE POSITIVE (NEGATIVE)
[2024-04-04 19:25] VITALS: PULSE 111
[2024-04-04] MEDS ORDERED: Acetaminophen 325 MG Tab PO PRN (19:33)
[2024-04-04] MEDS ORDERED: Albuterol 0.083% 2.5 MG/3 ML Neb Soln NEB PRN (19:33)
[2024-04-04] MEDS ORDERED: Sodium Chloride 0.9% 1,000 ML IV SCH (19:33)
[2024-04-04] MEDS: OLANZAPINE 15 MG PO SCH (22:15)
[2024-04-04] MEDS: ALPRAZolam 0.5 MG Tab PO SCH (22:15)
[2024-04-04] MEDS: OLANZAPINE 20 MG PO SCH (22:16)
[2024-04-04] MEDS: CYANOCOBALAMIN 1000 MCG PO SCH (22:16)
[2024-04-04] MEDS: SILDENAFIL 20 MG PO SCH (22:16)
[2024-04-05 06:41] VITALS: BP 121/64
[2024-04-05] MEDS ORDERED: Furosemide 40 MG Tab PO SCH (09:00)
[2024-04-05] MEDS ORDERED: MACITENTAN 10 MG PO SCH (09:00)
[2024-04-05] MEDS ORDERED: VILAZODONE HCL 10 MG PO SCH (09:00)
[2024-04-05] MEDS: Cholecalciferol (Vitamin D3) 25 MCG Tab PO SCH (09:13)
[2024-04-05] MEDS: Furosemide 40 MG Tab PO SCH (09:13)
[2024-04-05] MEDS: Spironolactone 25 MG Tab PO SCH (09:13)
[2024-04-05] MEDS: Folic Acid 1 MG Tab PO SCH (09:13)
[2024-04-05] MEDS: Enoxaparin 40 MG/0.4 ML Syringe SUBCUT SCH (09:13)
[2024-04-05] MEDS: OLANZapine 5 MG Tab PO SCH (09:18)
[2024-04-05] MEDS: Sildenafil 20 MG Tab PO SCH (09:18)
[2024-04-05] MEDS: Cyanocobalamin (Vitamin B12) 1,000 MCG Tab PO SCH (09:18)
== END 2024-04-05 11:05 | disposition home or self-care (01) ==
LOC: JP.ED 13:57 → JP.MS 18:49 → JP.ICU 19:25
PROVIDERS: ADMIT Hospitalist; ATTEND Hospitalist
DX: T40.711A Poisoning by cannabis, accidental (unintentional), initial encounter (principal); R40.0 Somnolence; I27.20 Pulmonary hypertension, unspecified; R53.83 Other fatigue; F41.9 Anxiety disorder, unspecified; F32.A Depression, unspecified; E66.9 Obesity, unspecified; F17.210 Nicotine dependence, cigarettes, uncomplicated; Z79.899 Other long term (current) drug therapy; Z68.30 Body mass index [BMI] 30.0-30.9, adult
CPT/HCPCS: 36415; 70450; 80053; 80305; 80307; 83605; 84145; 84484; 85025; 85610; 85730; 86140; 87040; 87077; 87186; 93005; 93010; 99223; 99238; 99285; A9270; G0378; J1650

== ENCOUNTER 2024-05-13 19:02 | Emergency (ER) | payer MEDICAID, MEDICARE ==
[2024-05-13 19:50] VITALS: BP 186/85; PULSE 87
[2024-05-13 19:59] LABS: BASOPHILS ABSOLUTE AUTO 0.04 K/uL (0.00-0.10); BASOPHILS PERCENT AUTO 0.4 % (0.1-1.3); EOSINOPHILS ABSOLUTE AUTO 0.11 K/uL (0.00-0.40); EOSINOPHILS PERCENT AUTO 1.1 % (0.0-5.4); HEMATOCRIT 36.5 % (34.3-46.0); HEMOGLOBIN 12.1 g/dL (11.2-15.5); IMMATURE GRAN ABSOLUTE AUTO 0.12 K/uL (0.00-0.23); IMMATURE GRAN PERCENT AUTO 1.2 % (0.0-0.7); LYMPHOCYTES PERCENT AUTO 25.3 % (11.4-47.7); MEAN CORPUSCULAR HEMOGLOBIN 26.1 pg (31.6-35.5); MEAN CORPUSCULAR HGB CONC 33.2 g/dL (31.6-35.5); MEAN CORPUSCULAR VOLUME 78.8 fL (81.4-99.0); MONOCYTES ABSOLUTE AUTO 0.54 K/uL (0.20-0.90); MONOCYTES PERCENT AUTO 5.5 % (3.3-12.6); NEUTROPHILS ABSOLUTE AUTO 6.58 K/uL (1.0-7.6); NEUTROPHILS PERCENT AUTO 66.5 % (40.0-78.1); PLATELET COUNT,PLT 262 K/uL (130-375); RED BLOOD CELL COUNT 4.63 M/uL (3.77-5.24); WHITE BLOOD CELL COUNT,WBC 9.9 K/uL (3.2-11.0)
[2024-05-13 20:20] LABS: ALANINE AMINOTRANSFERASE,ALT 33 U/L (12-78); ALBUMIN 3.4 g/dL (3.4-5.0); ALKALINE PHOSPHATASE 85 U/L (46-116); ASPARTATE AMNIOTRANSFERASE,AST 22 U/L (15-37); BILIRUBIN TOTAL 0.4 mg/dL (0.2-1.0); BLOOD UREA NITROGEN,BUN 7 mg/dL (7-18); CALCIUM 9.2 mg/dL (8.5-10.1); CARBON DIOXIDE,CO2 31 mmol/L (21-32); CHLORIDE,CL 101 mmol/L (100-108); EST CRCL DRUG DOSING (CG) 63.93 mL/min; ESTIMATED GFR 71 mL/min (>60); GLUCOSE RANDOM 106 mg/dL (74-106); PROTEIN TOTAL,TP 6.7 g/dL (6.4-8.2); SODIUM,NA 141 mmol/L (140-148)
[2024-05-13 20:21] LABS: ANION GAP 11.8 mmol/L (5.0-14.0); POTASSIUM,K 2.8 mmol/L (3.6-5.2)
[2024-05-13] MEDS: Potassium Chloride 20 MEQ Tab.ER PO ONE (20:36)
== END 2024-05-13 20:50 | disposition home or self-care (01) ==
LOC: JP.ED 19:02
DX: E87.6 Hypokalemia (principal); I50.9 Heart failure, unspecified; E66.9 Obesity, unspecified; Z86.16 Personal history of COVID-19; Z90.49 Acquired absence of other specified parts of digestive tract; F17.210 Nicotine dependence, cigarettes, uncomplicated; Z79.899 Other long term (current) drug therapy; Z68.43 Body mass index [BMI] 50.0-59.9, adult
CPT/HCPCS: 36415; 80053; 83735; 85025; 99284; A9270; 99283

== ENCOUNTER 2024-05-14 13:16 | Emergency (ER) | payer MEDICARE ==
[2024-05-14 13:36] VITALS: BP 151/75; PULSE 93
[2024-05-14 14:12] LABS: MAGNESIUM 1.3 mg/dL (1.8-2.4)
[2024-05-14] MEDS: Potassium Chloride 20 MEQ Tab.ER PO ONE (14:39)
[2024-05-14] MEDS: Magnesium Oxide 400 MG Tab PO ONE (14:39)
== END 2024-05-14 14:42 | disposition home or self-care (01) ==
LOC: JP.ED 13:16
DX: E87.6 Hypokalemia (principal); E83.42 Hypomagnesemia; I11.0 Hypertensive heart disease with heart failure; I50.9 Heart failure, unspecified; E66.9 Obesity, unspecified; F17.210 Nicotine dependence, cigarettes, uncomplicated; Z79.899 Other long term (current) drug therapy; Z86.16 Personal history of COVID-19; Z68.43 Body mass index [BMI] 50.0-59.9, adult
CPT/HCPCS: 36415; 83735; 84132; 99284; A9270